=== PATIENT | male | born 1945 | race Caucasian/White ===

== ENCOUNTER 2020-12-07 07:04 | Emergency (ER) | payer MEDICARE ==
--- NOTE | 2020-12-07 07:36 | ERPHSYRPT ---
- History of Present Illness Time Seen by Provider: 12/07/20 07:31 Source: patient Exam Limitations: no limitations Patient Subjective Stated Complaint: pt here for neck, upper back back pain for a couple days, no injury noted, as not tried OTC meds Triage Nursing Assessment: pt alert, walked in, resp easy, face mask in place, moves all ext well Physician History: 75 years old fairly healthy male presented in the ER with chief complaint of upper back pain and neck pain. Patient reports pain started 2 days ago in his left upper back/shoulder blade area and also having pain in the right side of neck moderate to severe intensity sharp in nature, without any significant aggravating or relieving factors, continuous denies any radiation of pain. No numbness tingling or weakness in upper extremities. Denies any chest pain palpitations or shortness of breath. Does not take any medication current blood pressure in 150s systolic. Timing/Duration: day(s) (2), constant, gradual onset, worse Method of Injury: unknown Quality: sharp Back Pain Location: C-spine, T-spine, paraspinous muscles Severity of Pain-Max: moderate Severity of Pain-Current: moderate Modifying Factors: Improves With: nothing Associated Symptoms: denies symptoms Previous symptoms: no prior history Allergies/Adverse Reactions: No Known Drug Allergies Allergy (Verified 12/07/20 07:19) Home Medications: Aspirin 81 mg PO DAILY 07/29/14 [History] Calcium 500 mg PO DAILY 07/29/14 [History] Multivitamin [Daily Multivitamin] 1 tab PO DAILY 07/29/14 [History] Hx Influenza Vaccination/Date Given: No Hx Pneumococcal Vaccination/Date Given: No Immunizations Up to Date: Yes Travel Risk - International Travel Have you traveled outside of the country in past 3 weeks: No - Coronavirus Screening Are you exhibiting any of the following symptoms?: No - Vaccine Status Have you recieved a Covid-19 vaccination: Yes Ceramic Tile Installer: Moderna - Vaccination Dates Date of 2cond Vaccination (if applicable): august - Review of Systems Constitutional: No Symptoms Eyes: No Symptoms Ears, Nose, & Throat: No Symptoms Respiratory: No Symptoms Cardiac: No Symptoms Abdominal/Gastrointestinal: No Symptoms Genitourinary Symptoms: No Symptoms Musculoskeletal: Back Pain Skin: No Symptoms Neurological: No Symptoms Psychological: No Symptoms Endocrine: No Symptoms Hematologic/Lymphatic: No Symptoms Immunological/Allergic: No Symptoms - Past Medical History Pertinent Past Medical History: No Neurological History: No Pertinent History ENT History: No Pertinent History Cardiac History: No Pertinent History Respiratory History: Tuberculosis Endocrine Medical History: No Pertinent History Musculoskeletal History: Arthritis, Fractures GI Medical History: No Pertinent History History: Other Psycho-Social History: No Pertinent History Male Reproductive Disorders: No Pertinent History Other Medical History: uti in past - Past Surgical History Past Surgical History: Yes Neuro Surgical History: No Pertinent History Cardiac: No Pertinent History Respiratory: Other Gastrointestinal: Appendectomy Genitourinary: No Pertinent History Musculoskeletal: Orthopedic Surgery Male Surgical History: Vasectomy Other Surgical History: bicep ,elbow - Social History Smoking Status: Never smoker Exposure to second hand smoke: No Drug Use: none Patient Lives Alone: No - Nursing Vital Signs Nursing Vital Signs: Initial Vital Signs Temperature 97.0 F 12/07/20 07:15 Pulse Rate 70 12/07/20 07:15 Respiratory Rate 18 12/07/20 07:15 Blood Pressure 159/84 12/07/20 07:15 O2 Sat by Pulse Oximetry 96 12/07/20 07:15 Pain Scale Pain Intensity [Neck] 5 Pain Intensity 5 - Physical Exam General Appearance: no apparent distress Eye Exam: PERRL/EOMI Ears, Nose, Throat Exam: normal ENT inspection Neck Exam: normal inspection, supple, full range of motion, other (Mild tenderness right trapezius area), No meningismus, No limited range of motion, No lymphadenopathy, No subcutaneous emphysema, No midline tenderness Respiratory Exam: normal breath sounds, lungs clear, No chest tenderness Cardiovascular Exam: regular rate/rhythm, normal heart sounds Gastrointestinal Exam: soft, normal bowel sounds, No tenderness Back Exam: normal inspection, normal range of motion, muscle spasm (Left th oracic paraspinal area), point tenderness (Left thoracic paraspinal area), No CVA tenderness, No vertebral tenderness, No decreased range of motion Extremity Exam: normal inspection, normal range of motion, pelvis stable Neurologic Exam: alert, oriented x 3, cooperative, 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, normal mood/affect, nml cerebellar function, nml station & gait, sensation nml, No motor deficits, No sensory deficit Skin Exam: normal color SpO2 Interpretation: normal SpO2: 96 O2 Delivery: Room Air - Course EKG Interpreted by Me: RATE (63), Sinus Rhythm, NORMAL AXIS, NORMAL INTERVALS, Q-wave (Anterior/inferior.) Ordered Tests: Active Orders 24 hr Category Date Time Status EKG-ER Only STAT Care 12/07/20 07:32 Active IV Insertion STAT Care 12/07/20 07:32 Active CERVICAL SPINE WO CONTRAST [CT] Stat Exams 12/07/20 08:25 Taken CHEST WITH CONTRAST [CT] Stat Exams 12/07/20 08:40 Taken CBC W DIFF Stat Lab 12/07/20 07:50 Completed CMP Stat Lab 12/07/20 07:50 Completed TROPONIN Q3H Lab 12/07/20 07:50 Completed TROPONIN Q3H Lab 12/07/20 10:45 Ordered TROPONIN Q3H Lab 12/07/20 13:45 Ordered TROPONIN Q3H Lab 12/07/20 16:45 Ordered TROPONIN Q3H Lab 12/07/20 19:45 Ordered UA W/RFX UR CULTURE Stat Lab 12/07/20 07:32 Ordered Lab/Rad Data: Laboratory Result Diagrams 12/07/20 07:50 12/07/20 07:50 Laboratory Results 12/07/20 12/07/20 12/07/20 Range/Units 07:50 07:50 07:50 WBC 11.4 H (4.0-10.5) K/mm3 RBC 4.56 (4.1-5.6) M/mm3 Hgb 14.4 (12.5-18.0) gm/dl Hct 43.9 (42-50) % MCV 96.3 (78-100) fl MCH 31.6 (26-32) pg MCHC 32.8 (32-36) g/dl RDW 13.4 (11.5-14.0) % Plt Count 250 (150-450) K/mm3 MPV 9.8 (7.5-11.0) fl Gran % 83.3 H (36.0-66.0) % Eos # (Auto) 0.04 (0-0.5) Absolute Lymphs (auto) 1.03 (1.0-4.6) Absolute Monos (auto) 0.79 (0.0-1.3) Lymphocytes % 9.1 L (24.0-44.0) % Monocytes % 6.9 (0.0-12.0) % Eosinophils % 0.4 (0.00-5.0) % Basophils % 0.3 (0.0-0.4) % Absolute Granulocytes 9.49 H (1.4-6.9) Basophils # 0.03 (0-0.4) Sodium 138 (137-145) mmol/L Potassium 4.5 (3.5-5.1) mmol/L Chloride 101 (98-107) mmol/L Carbon Dioxide 27 (22-30) mmol/L Anion Gap 14.3 (5-15) MEQ/L BUN 16 (9-20) mg/dL Creatinine 0.80 (0.66-1.25) mg/dL Estimated GFR > 60.0 ML/MIN Glucose 110 H (74-106) mg/dL Calcium 9.2 (8.4-10.2) mg/dL Total Bilirubin 0.60 (0.2-1.3) mg/dL AST 26 (17-59) U/L ALT 19 (0-50) U/L Alkaline Phosphatase 74 (38-126) U/L Troponin I < 0.012 (0.000-0.034) ng/mL Serum Total Protein 7.8 (6.3-8.2) g/dL Albumin 4.2 (3.5-5.0) g/dL - Progress Progress: unchanged Progress Note: 12/07/20 10:13 Is offered pain medication/muscle relaxant but patient refused multiple times. EKG showed normal sinus rhythm with no acute ST elevation and negative troponins. I have obtained CT cervical spine which is negative for any acute fracture or subluxation and CT chest with contrast negative for dissection, PE or any other acute findings. No compression fracture noticeable. Patient does not have midline tenderness but more on the left thoracic paraspinal area. He is recommended taking Tylenol as needed along with short course of muscle relaxant. Discussed signs symptoms of worsening needing return to ER which he seems understanding. His pain seems more of a musculoskeletal and has been going on for 2 days and 1 - troponin is good enough to rule out ACS. Recommended outpatient follow-up. Discussed signs symptoms of worsening needing return to ER which he seems understanding. Stable for discharge. Counseled pt/family regarding: lab results, diagnosis, need for follow-up, rad results - Departure Departure Disposition: Home Clinical Impression: Cervical strain, acute Qualifiers: Encounter type: initial encounter Qualified Code(s): S16.1XXA - Strain of muscl e, fascia and tendon at neck level, initial encounter Acute thoracic myofascial strain Qualifiers: Encounter type: initial encounter Qualified Code(s): S29.019A - Strain of muscle and tendon of unspecified wall of thorax, initial encounter Condition: Stable Critical Care Time: No Referrals: ABRAHAM MORGAN [Primary Care Provider] - (1-2 days for reevaluation) Instructions: Muscle Strain, Cervical Muscle Strain (DC) Additional Instructions: Take Tylenol/Flexeril as needed for symptomatic relief. Follow-up with primary care physician for reevaluation. Return to ER for worsening pain or having any difficulty breathing, chest pain, numbness tingling weakness etc. Prescriptions: Cyclobenzaprine HCl [Flexeril] 5 mg PO TID PRN #21 tablet PRN Reason: Muscle Spasms
[2020-12-07 08:02] LABS: Absolute Neutrophil Ct (ANC) 9.49 (1.4-6.9); BASOPHIL % 0.3 % (0.0-0.4); Basophil (Absolute #) 0.03 (0-0.4); Eosinophil % 0.4 % (0.00-5.0); Eosinophil (Absolute #) 0.04 (0-0.5); Hematocrit 43.9 % (42-50); Hemoglobin 14.4 gm/dl (12.5-18.0); Lymphocyte (Absolute #) 1.03 (1.0-4.6); Lymphocytes % 9.1 % (24.0-44.0); Mean Cell Volume 96.3 fl (78-100); Mean Corpuscular Hemoglobin 31.6 pg (26-32); Mean Corpuscular Hgb Concent. 32.8 g/dl (32-36); Mean Platelet Volume 9.8 fl (7.5-11.0); Monocyte (Absolute #) 0.79 (0.0-1.3); Monocytes % 6.9 % (0.0-12.0); Neutrophil % 83.3 % (36.0-66.0); Platelet Count 250 K/mm3 (150-450); Red Blood Count 4.56 M/mm3 (4.1-5.6); Red Cell Distribution Width 13.4 % (11.5-14.0); White Blood Count 11.4 K/mm3 (4.0-10.5)
[2020-12-07 08:07] LABS: ALBUMIN 4.2 g/dL (3.5-5.0); ALKALINE PHOSPHATASE 74 U/L (38-126); ANION GAP 14.3 MEQ/L (5-15); BLOOD UREA NITROGEN 16 mg/dL (9-20); CHLORIDE 101 mmol/L (98-107); Calcium 9.2 mg/dL (8.4-10.2); Carbon Dioxide 27 mmol/L (22-30); EST GLOMERULAR FILTRATION RATE > 60.0 ML/MIN; Glucose 110 mg/dL (74-106); Potassium 4.5 mmol/L (3.5-5.1); SGOT/AST 26 U/L (17-59); SGPT/ALT 19 U/L (0-50); SODIUM 138 mmol/L (137-145); Total Protein 7.8 g/dL (6.3-8.2)
[2020-12-07 10:17] VITALS: BP 146/95; PULSE 64; O2SAT 96
--- NOTE | 2020-12-07 21:19 | XRAY ---
Indication: Neck and thoracic pain. Multiple contiguous axial images obtained through the chest using 80 cc Isovue 370 contrast and PE protocol. Comparison: March 20, 2009. There is adequate opacification of the pulmonary arteries including lobar and segmental branches. No pulmonary embolus. Heart is not enlarged. Aorta normal in course and caliber. No pathologic mediastinal/hilar lymphadenopathy. Lungs demonstrates mild bilateral dependent atelectasis and new left lower lobe subsegmental atelectasis/scarring. Stable left costophrenic angle calcified granuloma. No suspicious pulmonary mass, infiltrate, or effusion. Bony thorax intact with mild osteopenia and mild degenerative changes throughout the spine. Limited upper abdomen including adrenal glands are unremarkable. Impression: 1. Negative pulmonary embolus. No acute cardiopulmonary abnormalities. 2. Incidental left lower lobe atelectasis/scarring, left base calcified granuloma, and chronic bony findings. Comment: Preliminary interpretation made by C. No critical discrepancy.
--- NOTE | 2020-12-07 21:25 | XRAY ---
Indication: Neck pain. No known injury. Multiple contiguous axial images obtained through the cervical spine. Sagittal and coronal reformatted images obtained. Comparison: None Osseous structures demineralized consistent with patient's age. Axial images negative for acute fracture, suspicious bony lesions, or spinal canal stenosis. There is minimal/mild C4-C7 degenerative endplate spurring and mild multilevel bilateral degenerative facet hypertrophy. Sagittal and coronal reformatted images demonstrates slight straightening of the cervical lordosis, positional versus paraspinal spasm. Minimal 1 mm anterolisthesis of C4 on C5 and C7 on T1 on T2. No acute compression fracture or jumped facet. Normal-appearing craniocervical junction. Visualized noncontrasted soft tissues are unremarkable. Lung apices demonstrates biapical pleural-parenchymal fibrosis/scarring. Impression: Osteopenia, multilevel degenerative spondylosis, and minimal spondylolisthesis as detailed. Comment: Preliminary interpretation made by [facility]. No critical discrepancy.
== END 2020-12-07 10:46 | disposition home or self-care (01) ==
LOC: ED 07:04
DX: S16.1XXA Strain of muscle, fascia and tendon at neck level, initial encounter (principal); S29.019A Strain of muscle and tendon of unspecified wall of thorax, initial encounter
CPT/HCPCS: 36000; 36415; 71260; 72125; 80053; 84484; 85025; 93005; 99284